=== PATIENT | male | born 1965 | race Caucasian/White ===

== ENCOUNTER → 2020-03-12 | Outpatient (CLI) | payer BC | END | disposition home or self-care (01) | LOC: OIH 10:31 | PROVIDERS: ATTEND Internal Medicine | DX: M75.41 Impingement syndrome of right shoulder (principal) | CPT/HCPCS: 73030 ==

== ENCOUNTER → 2021-12-26 | Outpatient (CLI) | payer BC, OTHER | LOC: RAH 13:01 | PROVIDERS: ATTEND Internal Medicine | DX: K52.9 Noninfective gastroenteritis and colitis, unspecified (principal); R10.32 Left lower quadrant pain; M47.815 Spondylosis without myelopathy or radiculopathy, thoracolumbar region | CPT/HCPCS: 74176 ==